=== PATIENT | female | born 1970 | race Two or more races ===

== ENCOUNTER 2018-07-01 10:55 | Inpatient (IN) | payer SELFPAY ==
[~2018-07-01] VITALS: Ht 162.6 cm; Wt 79.4 kg
[2018-07-01] MEDS ORDERED: IBUPROFEN 600MG TABLET PO ONE (15:00)
[2018-07-01] MEDS ORDERED: ACETAMINOPHEN 325MG TABLET PO ONE (15:45)
[2018-07-01 16:11] LABS: CHLORIDE 107 mEq/L (98-107)
[2018-07-01 16:12] LABS: INR 1.1; PROTHROMBIN TIME 11.1 sec (9.1-11.1)
[2018-07-01 17:19] LABS: HEMATOCRIT. 23.7 % (36.0-48.0); MEAN CORPUSCULAR VOLUME 49.7 fL (81.0-99.0); MEAN PLATELET VOLUME 8.6 fl (7.4-10.4); PLATELET 332 x1000/uL (130-400); RED BLOOD CELL COUNT 4.76 mill/uL (4.2-5.4); RED CELL DISTRIBUTION WIDTH 30.5 % (11.6-14.6)
[2018-07-01 17:22] LABS: HEMOGLOBIN. 5.7 g/dL (12.0-16.0)
[2018-07-01] MEDS ORDERED: HYDROCODONE/ACETAMINOPHEN 5/325MG TABLET PO ONE (17:30)
[2018-07-01 17:34] LABS: PLATELET ESTIMATE NORMAL
[2018-07-01] MEDS ORDERED: GUAIFENESIN 200MG/10ML SUGAR FREE UDC PO PRN (18:30)
[2018-07-01] MEDS ORDERED: NA PHOS,M-B/NA PHOS,DI-BA ENEMA 118ML PR PRN (18:30)
[2018-07-01] MEDS ORDERED: IPRATROPIUM/ALBUTEROL 0.5-3(2.5)MG/3ML NEB INH PRN (18:30)
[2018-07-01] MEDS ORDERED: MAGNESIUM/ALUMINUM HYDROXIDE/SIMETHICONE 30ML UDC PO PRN (18:30)
[2018-07-01] MEDS ORDERED: ACETAMINOPHEN 325MG TABLET PO PRN (18:30)
[2018-07-01] MEDS ORDERED: ZOLPIDEM TARTRATE 5MG TABLET PO PRN (18:30)
[2018-07-01] MEDS ORDERED: CLONIDINE 0.1MG TABLET PO PRN (18:30)
[2018-07-01] MEDS ORDERED: NITROGLYCERIN 0.4MG TABLET SL SL PRN (18:30)
[2018-07-01] MEDS ORDERED: DIPHENHYDRAMINE 50MG/ML VIAL IV PRN (18:30)
[2018-07-01] MEDS ORDERED: LORAZEPAM 0.5MG TABLET PO PRN (18:30)
[2018-07-01] MEDS ORDERED: DOCUSATE SODIUM 100MG CAPSULE PO PRN (18:30)
[2018-07-01] MEDS ORDERED: KETOROLAC 15MG/ML VIAL IV PRN (18:30)
[2018-07-01] MEDS ORDERED: ONDANSETRON HCL 4MG/2ML INJ IV PRN (18:30)
[2018-07-01 18:37] LABS: HCG SCREEN NEGATIVE
[2018-07-01 18:52] LABS: TOTAL IRON BINDING CAPACITY 460 ug/dL (250-450)
[2018-07-01 18:59] LABS: *AMPHETAMINES SCREEN URINE NEGATIVE (NEGATIVE); *BARBITURATES SCREEN URINE NEGATIVE (NEGATIVE); *BENZODIAZEPINES SCREEN URINE NEGATIVE (NEGATIVE); *COCAINE SCREEN URINE NEGATIVE (NEGATIVE); OPIATES URINE SCREEN NEGATIVE (NEGATIVE)
[2018-07-01 19:00] LABS: CANNABINOID URINE SCREEN NEGATIVE (NEGATIVE); PHENCYCLIDINE URINE SCREEN NEGATIVE (NEGATIVE)
[2018-07-01 19:01] LABS: METHADONE URINE SCREEN NEGATIVE (NEGATIVE)
[2018-07-01 19:15] LABS: FOLIC ACID (FOLATE) SERUM 14.6 ng/mL (>5.38)
[2018-07-02] VITALS (11 sets, daily range): BP systolic 90–109; BP diastolic 41–67
[2018-07-02] MEDS ORDERED: POTASSIUM CHLORIDE 20MEQ TABLET SR PO NR (02:00)
[2018-07-02] MEDS ORDERED: FAMOTIDINE 20MG TABLET PO SCH (09:00)
== END 2018-07-02 18:34 | disposition home or self-care (01) | DRG 532 ==
LOC: ER 10:55 → 6EST 17:45 → EDBEDREQ 18:13 → ENRESERV 22:53
PROVIDERS: ADMIT Internal Medicine; ATTEND Internal Medicine
PROC: 30233N1 Transfusion of Nonautologous Red Blood Cells into Peripheral Vein, Percutaneous Approach (ICD-10-PCS; principal; 2018-07-01)
DX: D25.9 Leiomyoma of uterus, unspecified (principal); D64.9 Anemia, unspecified; E87.6 Hypokalemia
CPT/HCPCS: 36415; 36430; 80305; 82607; 82746; 83036; 83540; 83550; 84703; 86850; 86900; 86920; 93971; 96374; 99291; J1885; J7040; J7050; P9016